=== PATIENT | female | born 1965 | race Caucasian/White ===

== ENCOUNTER 2022-03-09 13:20 | Emergency (ER) | payer BC, MEDICAID ==
[~2022-03-09] VITALS: Ht 167.6 cm; Wt 77.1 kg
[~2022-03-09 13:20] MED LIST: AMIT25TA11 PO; ATOR20TA PO; CARI350T22 PO; GABA300C10 PO; HYDR-2549 PO; LORA-205 PO; NAPR500T31 PO; PAR20T PO; ZOLP5TAB PO
[2022-03-09 13:36] VITALS: BP 174/92
== END 2022-03-10 04:44 | disposition left against medical advice (07) ==
LOC: EDBD 13:20 → ER 13:20
DX: M79.605 Pain in left leg (principal); M25.552 Pain in left hip; Z53.21 Procedure and treatment not carried out due to patient leaving prior to being seen by health care provider